=== PATIENT | female | born 1955 | race Caucasian/White ===

== ENCOUNTER → 2018-01-17 13:28 | Outpatient (REF) | payer BC, SELFPAY ==
[2018-01-17 17:37] LABS: Basophils # 0.1 K/mm3 (0-0.2); Eosinophils # 0.2 K/mm3 (0.0-0.4); Hematocrit 39.6 % (37.0-47.0); Hemoglobin 12.3 g/dL (12.2-16.2); Lymphocytes % 37.1 K/mm3 (10-50); Mean Corpuscular HGB Conc 31.1 g/dL (31.8-35.4); Mean Corpuscular Hemoglobin 29.4 pg (27.0-31.2); Mean Corpuscular Volume 94.7 fl (81-99); Mean Platelet Volume 11.4 fl (7.4-10.4); Monocytes # 0.3 K/mm3 (0.1-1.0); Monocytes % 6.1 % (1.7-9.3); Neutrophils # 2.8 K/mm3 (1.8-7.8); Neutrophils % 52.8 % (37.0-80.0); Platelet Count 259 K/mm3 (142-424); Red Blood Count 4.18 M/mm3 (4.20-5.40); Red Cell Distribution Width 12.5 % (11.5-17.5); White Blood Count 5.3 K/mm3 (4.8-10.8)
[2018-01-17 19:55] LABS: Alanine Aminotransferase 25 U/L (12-78); Albumin Level 3.5 gm/dL (3.4-5.0); Albumin/Globulin Ratio 1.2 (1.1-1.8); Alkaline Phosphatase 86 U/L (46-116); Amylase 27 U/L (25-125); Anion Gap 11.8 mEq/L (5-15); Aspartate Amino Transferase 15 U/L (15-37); Bilirubin,Total 0.4 mg/dL (0.2-1.0); Blood Urea Nitrogen 22 mg/dL (7-18); Calcium 8.2 mg/dL (8.5-10.1); Carbon Dioxide 24 mmol/L (21.0-32.0); Chloride 106 mmol/L (98-107); Chol/HDL Ratio 3.4 (1-3.5); Cholesterol 174 mg/dL (140-200); Creatinine,Serum 0.66 mg/dL (0.55-1.02); Estimated Glomerular Filt Rate 91 ml/min (>60); GFR (African American) 111 ML/MIN (>60); Globulin 2.9 gm/dl (1.3-3.2); Glucose 131 mg/dL (74-106); HDL Cholesterol 51 mg/dL (29-89); LDL Cholesterol 97 mg/dL (0-130); Lipase 80 u/L (73-393); Potassium 3.8 mmoL/L (3.5-5.1); Sodium 138 mmol/L (136-145); Thyroid Stimulating Hormone 1.31 uIU/ml (0.358-3.740); Total Protein,Serum 6.4 gm/dL (6.4-8.2); Triglycerides 132 mg/dL (30-200); VLDL Cholesterol 26 mg/dL (0-40)
[2018-01-20 02:33] LABS: Vitamin D 25 Hydroxy 48.5 ng/mL (30.0-100.0)
== END ==
LOC: LAB 13:28
PROVIDERS: Visit Provider Physician Assistant
DX: M54.9 Dorsalgia, unspecified (principal); R11.2 Nausea with vomiting, unspecified
CPT/HCPCS: 80053; 80061; 82150; 82652; 83690; 84439; 84443; 85025

== ENCOUNTER → 2022-07-31 10:37 | Outpatient (CLI) | payer BC, SELFPAY ==
--- NOTE | 2022-07-31 10:45 | MM_ITS ---
PROCEDURE INFORMATION: Exam: Bilateral Screening 3D Mammography Exam date and time: 07/31/2022 10:43 AM Age: 66 years old Clinical indication: Baseline. No family history of breast cancer. TECHNIQUE: Imaging protocol: Bilateral Screening tomosynthesis and 2D mammography including computer-aided detection (CAD) when performed. COMPARISON: No relevant prior studies available.If prior mammograms are provided, I am happy to add an addendum. FINDINGS: MAMMOGRAPHY: Breast composition: There are scattered areas of fibroglandular density. Mass: None. Architectural distortion: None. Calcifications: No suspicious calcifications. Asymmetric density: Possible linear 2.0 cm patchy asymmetry in the left subareolar CC projection, anterior to middle 3rd. Skin thickening: None. Axillary adenopathy: None. IMPRESSION: Patient to be recalled for left diagnostic mammography with spot compression and rolled view in the craniocaudad projection as well as full field lateral and left sonography for further evaluation of possible asymmetry in the left breast. ASSESSMENT: BI-RADS Category 0: Incomplete- Need Additional Imaging Evaluation and/or Prior Mammograms for Comparison
== END ==
PROVIDERS: PCP Nurse Practitioner Family; Visit Provider Nurse Practitioner Family
DX: Z12.31 Encounter for screening mammogram for malignant neoplasm of breast (principal)
CPT/HCPCS: 77063; 77067

== ENCOUNTER → 2022-08-30 13:46 | Outpatient (CLI) | payer BC, SELFPAY ==
--- NOTE | 2022-08-30 13:50 | MM_ITS ---
PROCEDURE INFORMATION: Exam: US Left Breast, Complete MG Left Diagnostic Breast Tomosynthesis Exam date and time: 08/30/2022 2:04 PM Age: 66 years old Clinical indication: Callback for additional assessment of possible linear 2 cm asymmetry in the left subareolar breast identified on 07/31/2022 screening mammogram TECHNIQUE: Imaging protocol: Complete ultrasound of all four quadrants of the Left breast and the retroareolar regions, including ultrasound of the axilla when performed. Left Diagnostic tomosynthesis and 2D mammography including computer-aided detection (CAD) when performed. Unilateral or bilateral exam. COMPARISON: MG MM DIG SCREENING MAMM BI W/CAD 07/31/2022 10:43 AM FINDINGS: MAMMOGRAPHY: Medial and lateral rolled as well as spot compression views and full lateral view were obtained. Approximately 6 o'clock, left breast, there is a circumscribed low-density 0.8 cm mass with no associated architectural distortion or suspicious calcifications. This demonstrates a linear orientation especially on spot views M reflect a focally dilated duct. ULTRASOUND: In the region of mammographic interest, only normal glandular structures are present. There is a incidental 0.3 cm cyst along the 3 o'clock axis No suspicious solid or cystic mass is present. No architectural distortion or shadowing is present. No axillary adenopathy is present. IMPRESSION: Six-month follow-up left diagnostic mammogram to include rolled views and full lateral view as well as spot cc view is recommended to assess stability of a sonographically occult 0.8 cm mass along the 6 o'clock anterior left breast which has features of a focally dilated duct ASSESSMENT: BI-RADS category 3: Probably benign
== END ==
PROVIDERS: PCP Nurse Practitioner Family; Visit Provider Nurse Practitioner Family
DX: R92.8 Other abnormal and inconclusive findings on diagnostic imaging of breast (principal)
CPT/HCPCS: 76641; 77061; 77065; G0279

== ENCOUNTER → 2022-10-19 14:59 | Outpatient (CLI) | payer BC, SELFPAY ==
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
== END ==
LOC: RT 15:02
PROVIDERS: PCP Nurse Practitioner Family; Visit Provider Nurse Practitioner Family
DX: M79.601 Pain in right arm (principal)
CPT/HCPCS: 93971

== ENCOUNTER → 2022-11-29 10:42 | Outpatient (CLI) | payer BC, SELFPAY ==
--- NOTE | 2022-11-29 10:52 | XR_ITS ---
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 There is no acute fracture or dislocation. Mild hypertrophic changes of the acromioclavicular joint. No bony erosions or periosteal reaction. There is no acute soft tissue abnormality. IMPRESSION: No acute process. Reviewed, Interpreted and Dictated by Faraz Hoyt MD Transcribed by Arcelia Ro Authenticated and [facility]
== END ==
PROVIDERS: PCP Nurse Practitioner Family; Visit Provider Orthopaedic Surgery
DX: M79.601 Pain in right arm (principal); M89.8X2 Other specified disorders of bone, upper arm
CPT/HCPCS: 73060

== ENCOUNTER 2023-01-03 16:00 | Outpatient (RCR) | payer BC, SELFPAY ==
--- NOTE | 2022-12-08 17:15 | HMH.PTOPEV ---
PT Outpatient Evaluation Rehab PT Outpatient Evaluation Start: 12/08/22 17:03 Freq: Status: Active Protocol: Document 12/08/22 17:04 ALETHA (Rec: 12/08/22 17:15 PHOSUSAN [id number]) E-signed By Chuy Paul, PT Outpatient Therapy Subjective History Subjective History This is the initial PT eval for Katelin Hilario 66 yowf who presents with c/o R SHLD pain x ~ 2-3 mos with insidious onset of symptoms. 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 She reports injection in her SHLD form Ortho significantly reduced her pain. She reports no c/o pain in the neck and no numbness or tingling. She reports no significant PMH. Chief Complaint Pain Symptom Type Ache,Sharp Symptoms Relieved By Rest/Positioning Symptoms Aggravated By Physical Activity,Lifting Prior Functional Limitations None Current Functional Limitations Reaching,Lifting,Sleeping Symptom Description Constant but Variable Level of pain today (0-10) 4 Pain scale - at its worst (0-10) 10 Shoulder/Elbow Eval Shoulder Objective Measurements Palpation Tenderness tenderness over the bicipital tendon bilateral shoulder exam standard tenderness over the SA bursa shoulder right exam standard Shoulder Palpation Findings Tenderness Shoulder Palpation Overall Comment 2/4 Posture Shoulder Posture Sitting Position (L) Rounded,(R) Rounded Shoulder ROM Right Shoulder Abduction Active Range of 0-168 Motion (degrees) Shoulder Flexion Active Range of Motion 0-180 (degrees) Query Text: Shoulder External Rotation Active Range 0-80 of Motion (degrees) Shoulder Internal Rotation Active Range 0-90 of Motion (degrees) Shoulder MMT Shoulder Abduction Strength Grade 4 Good Shoulder Flexion Strength Grade 4 Good Shoulder External Rotation Strength 4 Good Grade Shoulder Internal Rotation Strength 5 Normal Grade Supraspinatus Strength Grade 4 Good Shoulder Special Tests impingement sign present shoulder exam right standard Shoulder Anterior Drawer Test Negative Left,Negative Right Shoulder Empty Can (Supraspinatus) Test Negative Left,Negative Right Shoulder Rodriguez-Jovan Impingement Negative Left,Positive Right Test Shoulder Neer Impingement
--- NOTE | 2023-01-03 16:31 | HMH.RHREAS ---
Rehab Reassessment Rehab OP Re-assessment Start: 01/03/23 16:25 Freq: Status: Active Protocol: Document 01/03/23 16:26 ALETHA (Rec: 01/03/23 16:31 PHORLINDA [id number]) E-signed By Chuy Paul, PT Rehab Re-assessment Subjective Subjective Pt presents with c/o 2/20 pain in the R anterior shoulder this date. It hurts like this pretty much all the time. I know I'm not helping it by doing my job, but I've got to work. Objective Objective Notes R SHLD MMT: FLEX= 4/5, ABD= 4/ 5 ER= 4/5, OTHERWISE 5/5. TTP: 08/02 R LHB tendon proximally. AROM: Flex 0-170, ABD= 0-170, ER= 0-80. Assessment Progress Assessment Slower Than Expected Assessment Notes Pt has shown independence with HEP and some decrease in pain . She presents with little improvement in R SHLD AROM and no improvement in R SHLD strength. She prefers to wait until her follow-up with the surgeon before continuing treatment at this time, but does agree to continue HEP as instructed. Patient goals met ST,4,[address],3 LT,2,3,4,5,6,7 Revised Goals none Plan Plan Will D/C pt at this time with instuction to continue HEP. Frequency of Therapy 0 Duration of therapy 0 wks Time and Billing Re-Eval Time 14 Re-Eval Billing Units 1 PHYSICIAN CERTIFICATION: I certify the specified therapy services for Katelin Hilario are required, authorized, and reviewed every 30 days.
== END 2023-01-03 16:05 | disposition home or self-care (01) ==
LOC: PT 16:00
PROVIDERS: PCP Nurse Practitioner Family; Visit Provider Orthopaedic Surgery
DX: M25.511 Pain in right shoulder (principal); M75.101 Unspecified rotator cuff tear or rupture of right shoulder, not specified as traumatic; D17.21 Benign lipomatous neoplasm of skin and subcutaneous tissue of right arm; M89.8X2 Other specified disorders of bone, upper arm
CPT/HCPCS: 97035; 97110; 97163; 97164

== ENCOUNTER 2023-06-12 11:25 | Emergency (ER) | payer OTHER, BC, SELFPAY ==
[2023-06-12] VITALS (10 sets, daily range): BP systolic 128–164; BP diastolic 84–103; PULSE 60–72; RESP 16–20; TEMP 36.7–36.9; O2SAT 95–98; BMI 32.8
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
[2023-06-12 12:26] LABS: Basophils # 0.1 K/mm3 (0-0.2); Eosinophils # 0.3 K/mm3 (0.0-0.4); Eosinophils % 4.1 % (0.1-12.0); Hemoglobin 13.2 g/dL (12.2-16.2); Lymphocytes # 2.2 K/mm3 (0.7-4.5); Lymphocytes % 29.6 % (10-50); Mean Corpuscular HGB Conc 34.8 g/dL (31.8-35.4); Mean Corpuscular Hemoglobin 32.6 pg (27.0-31.2); Mean Corpuscular Volume 93.7 fl (81-99); Monocytes # 0.4 K/mm3 (0.1-1.0); Monocytes % 5.2 % (1.7-9.3); Neutrophils # 4.4 K/mm3 (1.8-7.8); Neutrophils % 60.1 % (37.0-80.0); Platelet Count 217 K/mm3 (142-424); Red Blood Count 4.06 M/mm3 (4.20-5.40); Red Cell Distribution Width 12.6 % (11.5-17.5); White Blood Count 7.4 K/mm3 (4.8-10.8)
[2023-06-12 12:47] LABS: Chloride 105 mmol/L (98-107); Potassium 4.1 mmoL/L (3.5-5.1); Sodium 136 mmol/L (136-145)
[2023-06-12 12:49] LABS: Blood Urea Nitrogen 21 mg/dl (7-17); Creatinine Clearance Estimated 79 mL/min (50-200); Estimated Glomerular Filt Rate 84 ml/min (>60); GFR (African American) 102 ML/MIN (>60)
[2023-06-12 12:50] LABS: Alanine Aminotransferase 26 U/L (12-78); Albumin Level 4.2 g/dl (3.5-5.0); Albumin/Globulin Ratio 1.5 (1.1-1.8); Alkaline Phosphatase 79 U/L (38-126); Anion Gap 8.1 mEq/L (5-15); Aspartate Amino Transferase 34 U/L (14-36); Bilirubin,Total 0.6 mg/dl (0.2-1.3); Calcium 8.7 mg/dl (8.4-10.2); Carbon Dioxide 27 mmol/L (22.0-30.0); Globulin 2.8 g/dL (1.3-3.2); Glucose 101 mg/dl (74-100)
== END 2023-06-12 15:38 | disposition home or self-care (01) ==
PROVIDERS: Emergency Provider Emergency Medicine; PCP Nurse Practitioner Family
DX: R07.81 Pleurodynia (principal); S09.90XA Unspecified injury of head, initial encounter; V49.10XA Passenger injured in collision with unspecified motor vehicles in nontraffic accident, initial encounter
CPT/HCPCS: 70450; 71275; 72125; 74174; 80053; 85025; 96360; 99285; Q9967

== ENCOUNTER 2024-10-14 11:08 | Outpatient (CLI) | payer MEDICARE, SELFPAY ==
--- NOTE | 2024-10-14 11:21 | XR_ITS ---
FINAL REPORT CLINICAL HISTORY: .ACUTE BACK PAIN WITH SCIATICA COMPARISON: None FINDINGS: RIGHT HIP Two views of the right hip with an AP view of the pelvis demonstrate no acute fracture or dislocation. There are mild degenerative changes. The visualized bony structures are well aligned. No soft tissue abnormality is seen. IMPRESSION: Mild degenerative changes without acute bony abnormality. Reviewed, Interpreted and Dictated by Fredrick Daniel MD Transcribed by Arcelia Ro Authenticated and [facility]
--- NOTE | 2024-10-14 11:21 | XR_ITS ---
FINAL REPORT CLINICAL HISTORY: .ACUTE BACK PAIN WITH SCIATICA COMPARISON: None FINDINGS: LEFT HIP: Two views of the left hip demonstrate no acute fracture or dislocation. There are mild degenerative changes. The visualized bony structures are well aligned. No soft tissue abnormality is seen. IMPRESSION: No acute bony abnormality. Reviewed, Interpreted and Dictated by Fredrick Daniel MD Transcribed by Arcelia Ro Authenticated and [facility]
--- NOTE | 2024-10-14 11:21 | XR_ITS ---
FINAL REPORT CLINICAL HISTORY: ACUTE BACK PAIN WITH SCIATICA COMPARISON: None FINDINGS: LUMBOSACRAL SPINE SERIES Five views of the lumbosacral spine were obtained. There is no fracture present. There is moderate diffuse degenerative disc disease. Mild anterolisthesis is noted of L4 on L5. There is advanced facet arthropathy. Probable canal stenosis and neural foraminal narrowing is noted in the lower lumbar spine. IMPRESSION: Degenerative changes most pronounced in the lower lumbar spine with probable canal stenosis and neural foraminal narrowing. Consider MRI evaluation. Reviewed, Interpreted and Dictated by Fredrick Daniel MD Transcribed by Arcelia Ro Authenticated and [facility]
== END 2024-10-14 23:59 | disposition home or self-care (01) ==
PROVIDERS: PCP Nurse Practitioner Family; Visit Provider Nurse Practitioner Family
DX: M54.41 Lumbago with sciatica, right side (principal); M54.42 Lumbago with sciatica, left side
CPT/HCPCS: 72110; 73502